=== PATIENT | female | born 1935 | race Two or more races ===

== ENCOUNTER 2018-10-03 19:23 | Inpatient (IN) | payer MEDICARE, MEDICAID ==
[2018-10-03] MEDS ORDERED: NS 0.9% 1000 ML** 1,000 ML IV ONE (20:14)
[2018-10-03] MEDS ORDERED: Morphine 4 MG/ML VIAL (1 ml) 4 MG/ML VIAL IV ONE (20:14)
[2018-10-03] MEDS ORDERED: oxyCODONE/Acetamin 5/325 MG* TAB PO ONE (20:14)
[2018-10-03] MEDS ORDERED: Morphine 4 MG/ML VIAL (1 ml) 4 MG/ML VIAL IV PRN (20:16)
--- NOTE | 2018-10-03 20:19 | ED ---
Lower Extremity - HPI Summary HPI Summary: The patient is an 83 y/o F presenting to [facility] accompanied by daughter with a chief complaint of left hip s/p falling tonight. She reports that she had missed the last step while going downstairs and fell on the left side in which she sustained immediate pain in the left hip. She denies any head injury, back pain, or numbness. She is unable to bear weight on the left side, and there is decreased ROM in the LLE secondary to pain. The sharp pain is aggravated by movement and alleviated by rest. The pain is currently rated 10/10 in severity. There is no previous injury to the hip. No medications. PMHx: vitiligo. Nonsmoker, no EtOH, no substance use. - History of Current Complaint Chief Complaint: EDHipPelvisInjury Stated Complaint: FALL PER PT DAUGHTER Time Seen by Provider: 10/03/18 20:02 Hx Obtained From: Patient, Family/[employer] - daughter Mechanism Of Injury: Fall From A Standing Position - slipped downstairs landing on left side Onset of Pain: Immediate Pain Intensity: 10 Pain Scale Used: 0-10 Numeric Timing: Constant, Lasting Minutes Location: Is Discrete @ - left hip Character Of Pain: Sharp Associated Signs And Symptoms: Positive: Other - POSITIVE: decreased ROM in LLE secondary to pain; NEGATIVE: back pain, numbness, head injury Aggravating Factor(s): Movement Alleviating Factor(s): Rest Able to Bear Weight: No - unable to bear weight on left side - Allergies/Home Medications Allergies/Adverse Reactions: Allergies Allergy/AdvReac Type Severity Reaction Status Date / Time No Known Allergies Allergy Verified 10/03/18 19:26 PMH/Surg Hx/FS Hx/Imm Hx Endocrine/Hematology History: Reports: Other Endocrine/Hematological Disorders - vitiligo Denies: Hx Diabetes Cardiovascular History: Denies: Hx Hypertension History: Denies: Hx Acute Renal Failure Sensory History: Denies: Hx Deafness Opthamlomology History: Denies: Hx Legally Blind - Surgical History Surgical History: None Surgery Procedure, Year, and Place: none Infectious Disease History: No Infectious Disease History: Denies: Traveled Outside the [place] in Last 30 Days - Family History Known Family History: Negative: Hypertension, Diabetes - Social History Alcohol Use: None Hx Substance Use: Yes Substance Use Type: Reports: None Hx Tobacco Use: No Smoking Status (MU): Never Smoked Tobacco Review of Systems Positive: Decreased ROM - secondary to pain in left hip, Other - POSITIVE: pain in right hip; NEGATIVE: back pain Neurological: Other - NEGATIVE: head injury Negative: Numbness All Other Systems Reviewed And Are Negative: Yes Physical Exam - Summary Physical Exam Summary: Appearance: Well-appearing, Well-nourished, elderly woman laying in the stretcher in no acute distress Skin: Warm, dry, no obvious rash Eyes: sclera anicteric, no conjunctival pallor ENT: mucous membranes moist, pharynx appears normal Neck: Supple, nontender Respiratory: Clear to auscultation, no signs of respiratory distress Cardiovascular: Normal S1, S2. No murmurs. Normal distal pulses in tibial and radial bilaterally. Abdomen: Soft, nontender, normal active bowel sounds present Musculoskeletal: Left leg is shortened and externally rotated with pain overlying the hip with movement of the leg Neurological: A&Ox3, awake and alert, mentation is normal, speech is fluent and appropriate Psychiatric: affect is normal, does not appear anxious or depressed Triage Information Reviewed: Yes Vital Signs On Initial Exam: Initial Vitals Temp Pulse Resp BP Pulse Ox 97.4 F 67 15 166/62 96 10/03/18 19:25 10/03/18 19:25 10/03/18 19:25 10/03/18 19:25 10/03/18 19:25 Vital Signs Reviewed: Yes Diagnostics - Vital Signs Vital Signs Temp Pulse Resp BP Pulse Ox 10/03/18 19:25 97.4 F 67 15 166/62 96 - Laboratory Result Diagrams: 10/06/18 09:43 10/03/18 20:45 Lab Statement: Any lab studies that have been ordered have been reviewed, and results considered in the medical decision making process. - Radiology Left Hip/Pelvis XR Radiology Interpretation Completed By: ED Physician Summary of Radiographic Findings: Left-sided intertrochanteric fracture. ED physician has interpreted this report. Pending official report. CXR Radiology Interpretation Completed By: ED Physician Summary of Radiographic Findings: No acute disease. ED physician has interpreted this report. Pending official report. - EKG 2047 Cardiac Rate: NL - 68 bpm EKG Rhythm: Sinus Rhythm Summary of EKG Findings: NSR at 68 bpm. RBBB. Otherwise nml EKG. No STEMI. Re-Evaluation - Re-Evaluation First Eval Re-Evaluation Time: 20:40 Comment: I discussed XR results with the patient. I reported that Dr. Rose from orthopedics will come see the patient in the ED for admission. Lower Extremity Course/Dx - Course Course Of Treatment: Patient is an 83 y/o F with cc of immediate onset sharp left hip pain s/o falling down a single step landing on the left side without head or back injury. Decreased ROM in LLE and unable to bear weight secondary to pain. Denies numbness. No previous injury. Upon physical exam, the patient appears to be an elderly woman laying stress no acute distress with the left leg shortened and externally rotated with pain overlying the hip with movement of the leg. In the ED course, she was administered fluids, Percocet, and Morphine for pain control. Blood work reveals elevated WBCs of 12.6, abs neuts of 10.1, and BUN/Creatinine of 25.8. EKG at 2048 reveals NSR at 68 bpm with RBBB but is otherwise normal. Chest x-ray is negative. Left Hip/Pelvis x- ray reveals left-sided intertrochanteric fracture. Chest x-ray is negative. I discussed the patients case with Dr. Rose from orthopedics, and he will consult for the patient. He accepts the patient for admission. She understands and agrees with admission plan. - Diagnoses Provider Diagnoses: Intertrochanteric fracture of left hip - Physician Notifications Discussed Care Of Patient With: Marquise Rose - orthopedics Time Discussed With Above Provider: 20:37 Instructed by Provider To: Other - Dr. Rose will come see the patient in the ED. He accepts the patient for admission. Discharge - Sign-Out/Discharge Documenting (check all that apply): Patient Departure - Patient is accepted for admission by Dr. Rose. Patient Received Moderate/Deep Sedation with Procedure: No - Discharge Plan Condition: Stable Disposition: ADMITTED TO [facility] - Billing Disposition and Condition Condition: STABLE Disposition: Admitted to [facility] - Attestation Statements Document Initiated by Scribe: Yes Documenting Scribe: Beba Charles Provider For Whom Scribe is Documenting (Include Credential): Dr. Simon Tipton MD Scribe Attestation: IBeba, scribed for Dr. Simon Tipton MD on 10/08/18 at 0144. Scribe Documentation Reviewed: Yes Provider Attestation: The documentation as recorded by the scribe, Beba Charles accurately reflects the service I personally performed and the decisions made by me, Dr. Simon Tipton MD Status of Scribe Document: Viewed
[2018-10-03 20:55] LABS: ABS Eosinophils 0.1 10^3/ul (0-0.6); ABS Lymphocytes 1.6 10^3/ul (1.0-4.8); ABS Monocytes 0.7 10^3/ul (0-0.8); ABS Neutrophils 10.1 10^3/ul (1.5-7.7); Eosinophil % 1.1 %; Hematocrit 36 % (35-47); Hemoglobin 12.1 g/dL (12.0-16.0); Lymphocyte % 12.7 %; Mean Corpuscular HGB Conc 34 g/dL (31-36); Mean Corpuscular Hemoglobin 32 pg (27-31); Mean Corpuscular Volume 94 fL (80-97); Mean Platelet Volume 7.6 fL (7.4-10.4); Platelet Count 190 10^3/uL (150-450); Red Blood Count 3.77 10^6 /uL (3.70-4.87); Red Cell Distribution Width 13 % (10-15); White Blood Count 12.6 10^3/uL (3.5-10.8)
[2018-10-03 21:03] LABS: INR 0.99 (0.82-1.09)
--- NOTE | 2018-10-03 21:12 | HP ---
H&P (Free Text) History and Physical: Orthopedic Surgery Consultation H&P Date: 10/03/2018 Requesting Service: ER Chief Complaint: Left hip pain. History: 83F tripped and fell onto left hip with immediate hip pain and inability to bear weight. Denies any other injuries. Denies head strike. No prior problems with the hip. The pain is located at the left hip and is constant moderate, sharp. Pain worse with hip ROM and lessened when rested. Review of Systems: Negative for fever, recent visual changes, difficulty swallowing, chest pain, shortness of breath, abdominal pain, hematuria, easy bruising, diffuse weakness or lack of coordination, and diffuse rash. PMH: Denies PSH: Denies Medications: Denies Allergies: No known drug allergies. SH: Lives with her daughter and family. Independent community ambulator. No smoking or alcohol. FH: Noncontributory. Physical Examination: Constitutional: General appearance is healthy and non-septic in no acute distress. Cardiovascular: Pulse examination demonstrates positive pedal pulses with brisk capillary refill. There are no varicosities. Heart with a regular rate and rhythm. Lungs clear bilaterally. Abdomen: Soft and nontender. Abdomen: Soft and nontender Lymphatic: No lymphadenopathy appreciated. Skin: Bilateral upper and lower extremity examination demonstrates no ulcerative lesions. Psychiatric / Neurological: Appropriate affect. Alert and oriented to person, place and time. There is no significant abnormality in coordination appreciated. Normoreflexive deep tendon reflex of the affected extremity. Musculoskeletal: Bilateral upper extremities and contralateral lower extremity show full range of motion with no evidence of instability and no tenderness with palpation and 5 /5 strength. There is no gross deformity. The extremity is shortened and externally rotated Skin intact 5/5 motor strength distally with intact sensation to light touch There is no global swelling, edema, or varicosities. Pain with logroll and heel strike No TTP at knee, lower leg, ankle, foot Palpable DP pulse. Flexes and extends ankle and toes. Imaging: X-rays were obtained, and independently interpreted and show a displaced left hip IT fracture. Labs: WBC 12.6 HCT 36 Platelets 190 INR 0.99 Impression and Plan: 83-year-old woman, status post mechanical fall, with left hip intertrochanteric fracture. We discussed both nonoperative and operative treatment options. My recommendation is surgical intervention when medically cleared, with a left cephalomedullary nail. We discussed the risks/benefits and pros/cons of both options. After this discussion, we came to the decision that we would move forward with surgery. For now, nonweightbearing in the affected extremity. NPO at midnight. Marquise Rose MD
[2018-10-03 21:13] LABS: Albumin 4.1 g/dL (3.2-5.2); Albumin/Globulin Ratio 1.4 (1-3); BUN/Creatinine Ratio 25.8 (8-20); EGFR African American 103.7 (>60); EGFR Non-African American 85.7 (>60); Globulin 2.9 g/dL (2-4); Potassium 3.8 mmol/L (3.5-5.0); Total Bilirubin 0.5 mg/dL (0.2-1.0)
[2018-10-03] MEDS ORDERED: Ondansetron INJ* 2 MG/ML VIAL IV PRN (21:37)
[2018-10-03] MEDS ORDERED: Morphine 10 MG/ML VIAL (1 ml) IV PRN (21:37)
[2018-10-03] MEDS ORDERED: oxyCODONE/Acetamin 5/325 MG* TAB PO PRN (21:37)
[2018-10-03] MEDS ORDERED: diPHENhydraMINE IV* 50 MG/ML 1 ml VIAL (BENADRYL) IV PRN (21:37)
[2018-10-03] MEDS ORDERED: oxyCODONE TAB* 5 MG TAB PO PRN (21:43)
[2018-10-03 21:59] LABS: ABS Eosinophils 0.1 10^3/ul (0-0.6); ABS Lymphocytes 1.1 10^3/ul (1.0-4.8); ABS Monocytes 0.6 10^3/ul (0-0.8); ABS Neutrophils 10.4 10^3/ul (1.5-7.7); Eosinophil % 0.4 %; Hematocrit 34 % (35-47); Hemoglobin 11.8 g/dL (12.0-16.0); Lymphocyte % 8.8 %; Mean Corpuscular HGB Conc 35 g/dL (31-36); Mean Corpuscular Hemoglobin 33 pg (27-31); Mean Corpuscular Volume 94 fL (80-97); Mean Platelet Volume 7.9 fL (7.4-10.4); Platelet Count 175 10^3/uL (150-450); Red Blood Count 3.63 10^6 /uL (3.70-4.87); Red Cell Distribution Width 13 % (10-15); White Blood Count 12.1 10^3/uL (3.5-10.8)
[2018-10-03 22:12] LABS: Activated Partial Thrombo Time 36.3 seconds (26.0-38.0); INR 1.03 (0.82-1.09)
[2018-10-03 22:22] LABS: Urine Appearance Clear; Urine Bacteria 1+ (Absent); Urine Bilirubin Negative (Negative); Urine Blood 1+ (Negative); Urine Color Colorless; Urine Glucose Negative (Negative); Urine Ketones Negative (Negative); Urine Nitrite Negative (Negative); Urine Protein Negative (Negative); Urine Red Blood Cell Trace(0-2/hpf) (Absent); Urine Specific Gravity 1.003 (1.010-1.030); Urine Urobilinogen Negative (Negative); Urine White Blood Cell Absent (Absent)
[2018-10-03] MEDS: Lactated Ringers 1000 ML Bag* 1,000 ML IV SCH (23:23)
[2018-10-04] MEDS ORDERED: Famotidine IV* 10 MG/ML 2 ML (20 mg) IV ONE (09:21)
[2018-10-04] MEDS ORDERED: Buffered Lidocaine 1% SYRIN* 1 ML/SYRINGE INTRADERM ONE (09:21)
[2018-10-04] MEDS ORDERED: Dexamethasone TAB* 4 MG PO ONE (09:21)
[2018-10-04] MEDS ORDERED: Lactated Ringers 1000 ML Bag* 1,000 ML IV SCH (10:00)
[2018-10-04] MEDS ORDERED: fentaNYL* 50 MCG/ML 2 ML VIAL (100 MCG VIAL) ONE (12:03)
[2018-10-04] MEDS ORDERED: KETAMINE HCL* 50 MG/ML 10 ML VIAL ONE (12:03)
[2018-10-04] MEDS ORDERED: Midazolam* 1 MG/ML 5 ML VIAL (5 MG) ONE (12:04)
[2018-10-04] MEDS ORDERED: Dexamethasone TAB* 4 MG ONE (12:27)
[2018-10-04] MEDS ORDERED: Famotidine IV* 10 MG/ML 2 ML (20 mg) ONE (12:27)
[2018-10-04] MEDS ORDERED: ceFAZolin 2 GM in NS PREMIX(*) 2 GM/100 ML BAG IVPB ONE (12:32)
[2018-10-04] MEDS ORDERED: Bupivacaine 0.25% EPI 200,000* 30 ML SDV ONE (12:56)
[2018-10-04] MEDS ORDERED: Phenylephrine 10 MG/ML VIAL* 1 ML VIAL ONE (14:17)
[2018-10-04] MEDS ORDERED: Propofol* 10 MG/ML 20 ML BTL ONE (14:17)
--- NOTE | 2018-10-04 14:37 | OP ---
Operative Report - Blank - Operative Report Date of Operation: 10/04/18 Note: PATIENT: Елена Machado DATE OF : 1935 DATE OF SURGERY: 10/04/2018 SURGEON: Marquise Rose MD CASKET LINER: none ANESTHESIOLOGIST: Dr. Jonas PREOPERATIVE DIAGNOSIS: Left intertrochanteric hip fracture. POSTOPERATIVE DIAGNOSIS: Left intertrochanteric hip fracture. PROCEDURE: Open reduction and internal fixation of the left hip fracture utilizing a cephalomedullary nail. ANESTHESIA: Spinal IMPLANTS: [place] gamma nail measuring 49c657 mm with 125 degree neck shaft angle, 90 mm lag screw, and 30 mm distal interlocking screw. ESTIMATED BLOOD LOSS: 100cc SPECIMENS: None. DRAIN: None TOURNIQUET TIME: None. COMPLICATIONS: None. STATUS: Stable from the operating room to the recovery room and then readmitted to the floor. INDICATIONS FOR PROCEDURE: Ms. Machado sustained a fall with the above-mentioned injury. Both operative and non operative treatment alternatives were reviewed. Further, the nature and risks of surgery were reviewed in careful detail. Our discussions regarding the risks of surgery included, but were not limited to, bleeding, need for blood transfusion, infection, wound problems, malunion, nonunion, nerve injury, neuroma, RSD, persistent symptoms, need for further surgery and even the remote chance of catastrophic complication, including loss of limb or . DESCRIPTION OF PROCEDURE: The patient was seen in the preoperative holding unit and informed written consent was obtained. The appropriate extremity was marked. The patient was then brought to the operating room anesthesia was induced. The patient was then carefully positioned on the fracture table and all bony prominences were padded with great care. We fluoroscopically assessed the fracture and pulled traction to gain a reduction. A chlorhexidine-based pre- scrub was performed followed by prep and drape in standard sterile fashion with ChloraPrep. A surgical safety pause was then conducted in which we confirmed the appropriate patient, extremity, planned procedure, availability of equipment , indication and administration of prophylactic antibiotics, and DVT prophylaxis in the form of a compression boot on the non-surgical extremity. I made an approximately 3-cm incision in line with the femur proximal to the greater trochanter. I carried the dissection down through the soft tissue and found the starting point on the greater trochanter utilizing the guidewire. This was confirmed fluoroscopically. I tapped the guidewire into proper position and then confirmed the position of the guidewire fluoroscopically. At this point, I overdrilled utilizing the starting reamer. This was done with fluoroscopic guidance as well. I then passed the short nail into appropriate position and gently tapped this down. The reduction was maintained during this portion of the procedure. I placed a guidewire up into the femoral neck and confirmed that this was center-center within the femoral head. I then measured the length of the guidewire and overdrilled this. I then placed the screw up into the femoral head. I confirmed that this was in the appropriate position utilizing multiple views fluoroscopically. I then locked this lag screw into place. At this point, I placed a single static interlocking screw distally into the nail utilizing the guide. At this point, I removed the guide arm and obtained final fluoroscopic images. I was pleased with the reduction and the position of the hardware. I irrigated copiously and closed in layers utilizing #1 Vicryl for the deep layer, 2-0 Vicryl for the Roly's and superficial layers , and pierce for the skin. A sterile dressing was then applied. At this point, the patient was carefully transitioned off of the fracture table and awakened from anesthesia. There were no complications. All needle and sponge counts were correct at the end of the case. ATTESTATION: I attest I was present and scrubbed and performed the entire procedure myself. POSTOPERATIVE PLAN: The patient will be admitted back to the medical service postoperatively and may be weightbearing as tolerated and will work with physical therapy. DVT prophylaxis with Lovenox 40 mg sc daily for 1 month is recommended.
[2018-10-04] MEDS ORDERED: Ondansetron INJ* 2 MG/ML VIAL ONE (15:32)
[2018-10-04] MEDS: Lactated Ringers 1000 ML Bag* 1,000 ML IV SCH (16:34)
[2018-10-04] MEDS: CEFAZOLIN IVPB SCH (22:15)
[2018-10-04] MEDS: NS 0.9% IVPB SCH (22:15)
[2018-10-04] MEDS: ADVAN IVPB SCH (22:15)
[2018-10-05] MEDS: NS 0.9% IVPB SCH ×2 (05:29→14:55)
[2018-10-05] MEDS: ADVAN IVPB SCH ×2 (05:29→14:55)
[2018-10-05] MEDS: CEFAZOLIN IVPB SCH ×2 (05:29→14:55)
[2018-10-05] MEDS: Lactated Ringers 1000 ML Bag* 1,000 ML IV SCH (05:32)
[2018-10-05] MEDS: Enoxaparin(*) 40 MG/0.4 ML SYR SUBCUT SCH (09:14)
--- NOTE | 2018-10-05 12:07 | DS ---
Orthopedic Discharge Summary - Discharge Summary Date of Admission:10/03/18 Date of Discharge: 10/05/18 Date of Surgery: 10/04/18 Attending Orthopedic Provider: Dr. Rose Pre-operative Diagnosis: Intertrochanteric left hip fracture Operative Procedure: IM nail left hip Disposition of Patient: home Condition of Patient: stable History: RADHA NOGUERA is a 83 year old F who fell 10/03/18 sustaining a left intertrochantric hip fracture. Patient elected to undergo a IM nail left hip. Hospital Course: RADHA was admitted to [facility] on 10/03/18. Patient underwent an ORIF left hip with IM nail without complication followed by a brief recovery in PACU and transfer to the Short Stay Surgical Unit in stable condition. Our hospitalist service, physical therapy and occupational therapy also participated in this patients care. Post-op day 1: patient was alert and in no acute distress. Dressing was clean, dry and intact. Operative extremity dorsiflexion and plantarflexion intact, sensation intact to light touch distally, DP2+: Her dressing was changed, incision was clean, dry and intact. Patient was deemed to be medically and orthopedically stable for discharge. Physical therapy goals were met. She will be staying with her daughter and instructions for Lovenox use for DVT prophylaxis reviewed. Home Medications Medication Instructions Recorded Confirmed Type Enoxaparin(*) [Lovenox(*)] 40 mg SUBCUT Q24H #30 syringe 10/05/18 Rx oxyCODONE/Acetamin 5/325 MG* 1 tab PO Q4H PRN #42 tab MDD 6 10/05/18 Rx [Percocet 5/325 TAB*] Discharge Instructions following Orthopedic Surgery: Activity: * Weight Bearing as tolerated * Continue physical therapy and occupational therapy exercises as shown Wound care: * OK to shower on post-op day 3, no bathing, swimming, or submerging wound. * Use gentle soap, pat dry. Cover with gauze, AILYN wrap or tape. * Visiting home nurse to do wound checks. Call Orthopedic office for: * Increased drainage * Redness * Increased pain * Fever Go to ER with shortness of breath or chest pain. Diet: * Regular diet * Increase fluids and fiber to prevent constipation. * Continue to use stool softeners, call office if no bowel motion within 48 hours. Medications See Home Medication List in your packet for medications that you should take after discharge. DVT Prophylaxis: Lovenox Dosin mg once a day to help prevent blood clot Pain Control: Percocet Dosin/325 mg 1 tab by mouth every 4-6 hours as needed for pain. Maximum of 6 tabs per day. Please note that Percocet contains Tylenol (acetaminophen). Maximum daily dose of Tylenol is 4000 mg from all sources. FOLLOW UP: Follow up with Dr. Rose Within 10-14 days, call for appointment Please call our office with any questions or concerns ([phone])
--- NOTE | 2018-10-06 08:06 | PN ---
Progress Note - Progress Note Date of Service: 10/06/18 SOAP: Subjective: [Pt reports feeling better this morning. No more nausea. L hip pain managed with po meds. Feels ready to go home today.] Objective: [A and O x 3, NAD. Family member at bedside. L hip dressing C/D/I Distal gross motor, NV intact. Calves soft, NT Vital Signs: Temp Pulse Resp BP Pulse Ox 97.6 F 65 16 131/52 93 10/06/18 03:03 10/06/18 03:03 10/06/18 03:03 10/06/18 03:03 10/06/18 03:03 ] Assessment: [s/p L hip ORIF POD # 2] Plan: [D/C patient home Lovenox for DVT prophylaxis Percocet for pain F/U in office with Dr. Rose in 2 weeks]
--- NOTE | 2018-10-06 09:26 | PN ---
Progress Note - Progress Note Date of Service: 10/06/18 Note: POD2 Left cephalomedullary nail. Doing great. No pain. Ambulating well. Temp Pulse Resp BP Pulse Ox 99.2 F 80 16 120/53 90 10/06/18 08:38 10/06/18 08:38 10/06/18 08:38 10/06/18 08:38 10/06/18 08:38 Thigh soft wound c/d/i Plan: Lovenox x1 month WBAT LLE check CBC Likely d/c today
[2018-10-06 09:51] LABS: Hematocrit 24 % (35-47); Hemoglobin 8.5 g/dL (12.0-16.0); Mean Corpuscular HGB Conc 35 g/dL (31-36); Mean Corpuscular Hemoglobin 33 pg (27-31); Mean Corpuscular Volume 94 fL (80-97); Mean Platelet Volume 8.1 fL (7.4-10.4); Platelet Count 152 10^3/uL (150-450); Red Cell Distribution Width 13 % (10-15); White Blood Count 7.9 10^3/uL (3.5-10.8)
[2018-10-06] MEDS: Enoxaparin(*) 40 MG/0.4 ML SYR SUBCUT SCH (10:25)
[2018-10-06] MEDS ORDERED: Docusate CAP* 100 MG PO PRN (10:37)
[2018-10-06] MEDS ORDERED: Senna TAB 8.6 mg* TAB PO PRN (10:38)
[2018-10-06] MEDS ORDERED: Bisacodyl SUPP* 10 MG SUPP PR ONE (10:39)
[2018-10-06 12:58] VITALS: BP 121/57
== END 2018-10-06 13:55 | disposition home health service (06) | DRG 482 ==
LOC: ED 19:23 → SSU 21:37
PROVIDERS: ADMIT Orthopaedic Surgery; ATTEND Orthopaedic Surgery
PROC: 0QS706Z Reposition Left Upper Femur with Intramedullary Internal Fixation Device, Open Approach (ICD-10-PCS; principal; 2018-10-04 13:00)
DX: S72.142A Displaced intertrochanteric fracture of left femur, initial encounter for closed fracture (principal); W01.0XXA Fall on same level from slipping, tripping and stumbling without subsequent striking against object, initial encounter; I45.10 Unspecified right bundle-branch block; D72.829 Elevated white blood cell count, unspecified; Z79.01 Long term (current) use of anticoagulants; Y92.9 Unspecified place or not applicable
CPT/HCPCS: 36415; 71045; 80053; 81003; 81015; 85025; 85027; 85610; 85730; 86850; 86900; 86901; 87086; 93005; 99284; A9270-GY; C1713; C1776; J0690; J1650; J2250; J2270; J2405; J2704; J3010; J8540

== ENCOUNTER 2018-12-02 20:19 | Emergency (ER) | payer MEDICARE, MEDICAID ==
--- OUTSIDE RECORDS SUMMARY | 2018-12-02 20:39 | XMS REPORT | Continuity of Care Document ---
:1935 External Reference #:[id number] Author Name Marquise Rose MD (transmitted by agent of provider Queta Meehan) Address [address] [place] [id number] Care Team Providers Name Role Phone Patient's Choice Care Team Information Senior Care Manager Unavailable Problems Active Problems Provider Date Closed intertrochanteric fracture Marquise Rose MD Onset: 10/04/2018 Social History Type Date Description Comments Sex Unknown Tobacco Use Start: Unknown Patient has never smoked Smoking Status Reviewed: 10/19/18 Patient has never smoked Allergies, Adverse Reactions, Alerts Description No Known Drug Allergies Medications Active Medications SIG Qnty Indications Ordering Date Provider Enoxaparin Sodium Inject 0.4 ML Unknown Sucutaneously Every 40mg/0.4ML Solution 24 Hours Immunizations Description No Information Available Vital Signs Date Vital Result Comment 10/19/2018 11:37am Heart Rate 86 /min BP Systolic 104 mmHg BP Diastolic 63 mmHg Respiratory Rate 16 /min Body Temperature 98.8 F Pain Level 0 Results Description No Information Available Procedures Date Code Description Status 10/04/2018 44555 FX TX Inter/Lennie Or Sub Chanteric Femoral FX W/Implant Completed 10/04/2018 53925 FX TX Inter/Lennie Or Sub Chanteric Femoral FX W/Implant Completed Medical Devices Description No Information Available Encounters Type Date Location Provider Dx Diagnosis Office Visit 10/03/2018 Orthopedic Marquise Rose, S72.142A Displaced 8:25a [email or web address] fracture of left femur, init W19.xxxA Unspecified fall, initial encounter Assessments Date Code Description Provider 10/19/2018 S72.142D Displaced intertrochanteric fracture of Marquise Rose MD left femur, subsequent encounter for closed fracture with routine healing 10/06/2018 S72.142A Displaced intertrochanteric fracture of Anjana Eleuterio, RPA-C left femur, initial encounter for closed fracture 10/06/2018 S72.142A Displaced intertrochanteric fracture of Marquise Rose MD left femur, initial encounter for closed fracture 10/06/2018 W19.xxxA Unspecified fall, initial encounter Anjana Mcclellan, RPA- C 10/06/2018 W19.xxxA Unspecified fall, initial encounter Marquise Rose MD 10/04/2018 S72.142A Displaced intertrochanteric fracture of Lyric Seaman, RPA-C left femur, initial encounter for closed fracture 10/04/2018 S72.142A Displaced intertrochanteric fracture of Marquise Rose MD left femur, initial encounter for closed fracture 10/04/2018 W19.xxxA Unspecified fall, initial encounter Marquise Rose MD 10/03/2018 S72.142A Displaced intertrochanteric fracture of Marquise Rose MD left femur, initial encounter for closed fracture 10/03/2018 W19.xxxA Unspecified fall, initial encounter Marquise Rose MD Plan of Treatment Future Appointment(s):12/03/2018 11:15 am - [facility] - ELIE [id number] Displaced intertrochanteric fracture of left femur, subsequent encounter for closed fracture with routine healingNew Xrays:Hip Left 2 Views And Pelvis [id number] - [id number] , Ordered: 10/19/18Hip Left 2 Views And Pelvis [id number] - [id number], Ordered: Follow up:6 weeks Functional Status Description No Information Available Mental Status Description No Information Available Referrals Description No Information Available
[2018-12-02 21:41] LABS: Urine Blood 2 (Negative); Urine Ketones Negative (Negative); Urine Protein 30 (Negative); Urine Urobilinogen Negative (Negative)
[2018-12-02 21:42] LABS: Urine Appearance Clear; Urine Bilirubin Negative (Negative); Urine Color Straw; Urine Glucose Negative (Negative); Urine Nitrite Negative (Negative)
[2018-12-02 21:43] LABS: Urine Bacteria Absent (Absent); Urine Red Blood Cell 1+(3-5/hpf) (Absent); Urine Squamous Epithelial Cell Present (Absent); Urine White Blood Cell 1+(6-10/hpf) (Absent)
[2018-12-02 21:45] LABS: ABS Eosinophils 0.2 10^3/ul (0-0.6); ABS Lymphocytes 2.6 10^3/ul (1.0-4.8); ABS Monocytes 0.6 10^3/ul (0-0.8); ABS Neutrophils 3.7 10^3/ul (1.5-7.7); Eosinophil % 2.6 %; Hematocrit 36 % (35-47); Hemoglobin 12.2 g/dL (12.0-16.0); Lymphocyte % 36.6 %; Mean Corpuscular HGB Conc 34 g/dL (31-36); Mean Corpuscular Hemoglobin 32 pg (27-31); Mean Corpuscular Volume 92 fL (80-97); Mean Platelet Volume 7.4 fL (7.4-10.4); Platelet Count 226 10^3/uL (150-450); Red Blood Count 3.88 10^6 /uL (3.70-4.87); Red Cell Distribution Width 14 % (10-15); White Blood Count 7.1 10^3/uL (3.5-10.8)
--- NOTE | 2018-12-02 21:53 | ED ---
GI/ HPI - HPI Summary HPI Summary: Patient is a 83 y/o F presenting to [facility] with complaints of suprapubic pain and hematuria. Patient does not speak [place] Citizen. Daughter, who is present in the room, translates for the patient. Pain has been present for the past few days and is noted to be worse at night. Hematuria onset tonight, 12/02/18. Patient denies fever and dysuria. She denies similar previous episodes of Sx. PMHx of kidney stones is noted. Patient had a hip fracture with surgery six weeks ago. Home medications and allergies are reviewed. - History of Current Complaint Chief Complaint: EDUrogenitalProblems Time Seen by Provider: 12/02/18 21:38 Stated Complaint: BLOOD IN URINE Hx Obtained From: Patient Onset/Duration: Started Hours Ago - hematuria, Started Days Ago - pain, Still Present Timing: Lasting Days - pain Pain Intensity: 0 Location of Pain: Suprapubic Associated Signs and Symptoms: Positive: Hematuria, Abdominal Pain - suprapubic. Negative: Fever, Dysuria - Additional Pertinent History Primary Care Physician: EUN - Allergy/Home Medications Allergies/Adverse Reactions: Allergies Allergy/AdvReac Type Severity Reaction Status Date / Time No Known Allergies Allergy Verified 12/02/18 20:23 PMH/Surg Hx/FS Hx/Imm Hx Endocrine/Hematology History: Reports: Other Endocrine/Hematological Disorders - vitiligo Denies: Hx Diabetes Cardiovascular History: Denies: Hx Hypertension GI History: Reports: Hx Gastroesophageal Reflux Disease History: Reports: Hx Kidney Stones Denies: Hx Acute Renal Failure Sensory History: Denies: Hx Contacts or Glasses, Hx Legally Blind, Hx Deafness, Hx Hearing Aid Opthamlomology History: Denies: Hx Contacts or Glasses, Hx Legally Blind - Surgical History Surgery Procedure, Year, and Place: none Hx Anesthesia Reactions: No Infectious Disease History: No Infectious Disease History: Denies: Traveled Outside the [place] in Last 30 Days - Family History Known Family History: Negative: Hypertension, Diabetes - Social History Alcohol Use: None Hx Substance Use: Yes Substance Use Type: Reports: None Hx Tobacco Use: No Smoking Status (MU): Never Smoked Tobacco Review of Systems Negative: Fever Positive: Abdominal Pain Positive: hematuria. Negative: dysuria All Other Systems Reviewed And Are Negative: Yes Physical Exam - Summary Physical Exam Summary: Appearance: Well-appearing, Well-nourished, lying in bed comfortably Skin: Warm, dry, no obvious rash Eyes: sclera anicteric, no conjunctival pallor ENT: mucous membranes moist, pharynx appears normal Neck: Supple, nontender Respiratory: Clear to auscultation, no signs of respiratory distress Cardiovascular: Normal S1, S2. No murmurs. Normal distal pulses in tibial and radial bilaterally. Abdomen: Soft, nontender, normal active bowel sounds present Musculoskeletal: Normal, Strength/ROM Intact Neurological: A&Ox3, awake and alert, mentation is normal, speech is fluent and appropriate Psychiatric: affect is normal, does not appear anxious or depressed Triage Information Reviewed: Yes Vital Signs On Initial Exam: Initial Vitals Temp Pulse Resp BP Pulse Ox 98.3 F 83 15 187/96 95 12/02/18 20:21 12/02/18 20:21 12/02/18 20:21 12/02/18 20:21 12/02/18 20:21 Vital Signs Reviewed: Yes Procedures - Sedation Patient Received Moderate/Deep Sedation with Procedure: No Diagnostics - Vital Signs Vital Signs Temp Pulse Resp BP Pulse Ox 12/02/18 20:21 98.3 F 83 15 187/96 95 - Laboratory Result Diagrams: 12/02/18 21:37 12/02/18 21:37 Lab Statement: Any lab studies that have been ordered have been reviewed, and results considered in the medical decision making process. Re-Evaluation - Re-Evaluation First Eval Re-Evaluation Time: 22:59 Comment: Results of UA and bloodwork obtained. Patient discharged to home with antibiotic. GIGU Course/Dx - Course Course Of Treatment: Patient is a 83 y/o F presenting to [facility] with complaints of suprapubic pain and hematuria. Patient does not speak [place] Citizen. Daughter, who is present in the room, translates for the patient. Pain has been present for the past few days and is noted to be worse at night. Hematuria onset tonight, . Patient denies fever and dysuria. Bloodwork was obtained and WNL with exception of MCH 32, potassium 3.4, BUN/creatinine ratio of 29.2, glucose 132, alk phos 133. UA showed 1+ WBC, 1+ RBC, and present squamous epith cells. Urine cultures sent. Patient was given Macrodantin 100 mg PO in ED and prescription for this antibiotic. She will follow up with PCP in 2-3 days. - Diagnoses Provider Diagnoses: UTI (urinary tract infection) Discharge ED - Sign-Out/Discharge Documenting (check all that apply): Patient Departure - discharge - Discharge Plan Condition: Stable Disposition: HOME Prescriptions: Nitrofurantoin Macrocrystals* [Macrodantin 100 mg*] 100 mg PO BID #10 cap Patient Education Materials: Urinary Tract Infection in Women (ED) Referrals: Mariela Mariee MD [Primary Care Provider] - Additional Instructions: Contact your PCP tomorrow so her office can check on your urine culture when it comes back in 2-3 days. In the meantime I think there is enough evidence of a UTI to put you an antibiotic to treat that. If the culture turns up negative, your PCP will need to see you back to determine if you need further testing. - Billing Disposition and Condition Condition: STABLE Disposition: Home - Attestation Statements Document Initiated by Adelina: Yes Documenting Scribe: PAMELA SOLIZ Provider For Whom Adelina is Documenting (Include Credential): DELFINO HERNANDEZ MD Scribe Attestation: PAMELA Heath, scribed for DELFINO HERNANDEZ MD on 12/03/18 at 0543. Scribe Documentation Reviewed: Yes Provider Attestation: The documentation as recorded by the PAMELA jimenez accurately reflects the service I personally performed and the decisions made by me, DELFINO HERNANDEZ MD Status of Scribe Document: Viewed
[2018-12-02 22:02] LABS: Albumin 4.1 g/dL (3.2-5.2); Albumin/Globulin Ratio 1.3 (1-3); BUN/Creatinine Ratio 29.2 (8-20); C Reactive Protein 2.54 mg/L (<8.01); Calcium 9.1 mg/dL (8.6-10.3); EGFR African American 93.8 (>60); EGFR Non-African American 77.5 (>60); Globulin 3.2 g/dL (2-4); Potassium 3.4 mmol/L (3.5-5.0); Total Bilirubin 0.4 mg/dL (0.2-1.0); Total Protein 7.3 g/dL (6.4-8.9)
[2018-12-02] MEDS ORDERED: Nitrofurantoin Macrocrystals* 100 MG CAP PO ONE (22:59)
[2018-12-02 23:32] VITALS: BP 132/73
== END 2018-12-02 23:30 | disposition home or self-care (01) ==
LOC: ED 20:19
DX: N39.0 Urinary tract infection, site not specified (principal); R31.9 Hematuria, unspecified; Z87.442 Personal history of urinary calculi
CPT/HCPCS: 36415; 80053; 81003; 85025; 86140; 87086; 99282; A9270-GY